=== PATIENT | male | born 1990 | race Hispanic/Latino ===

== ENCOUNTER 2023-08-12 22:22 | Observation (INO) | payer SELFPAY ==
--- OUTSIDE RECORDS SUMMARY | 2023-08-12 22:26 | XMS REPORT | Continuity of Care Document ---
:1990 Author Organization [facility] t Address [address] [place] [address] Care Team Providers Name Role Phone Asuncion Dyson Primary Care Physician VILMA TOBIN M.D. Attending Clinician Unavailable JOLANTA TIERNEY P.A. Attending Clinician Unavailable Problems Condition Condition Condition Status Onset Resolution Last Treating Co mments Source Name Details Category Date Date Treatment Clinician Date Other Other Disease Active [facility] 3- [facility] Beth kes is is [facility] Center History of History of Problem Resolve [facility] pancreatit pancreatit d Ph ysici is is ans Open Open Problem Active [facility] displaced displaced Phys ici comminuted comminuted an s fracture fracture of shaft of shaft of left of left humerus, humerus, initial initial encounter encounter Nerve pain Nerve pain Problem Active [facility]ici ans Allergies, Adverse Reactions, Alerts Allergy Allergy Status Severity Reaction(s) Onset Inactive Treating Comm ents Source Name Type Date Date Clinician Ondanset Drug Active Rash [facility] Iodine Drug Active Hives [facility] 11[facility]06 [facility] Iodide 00:[facility]: Medical Containi 00 Center ng Products Dicyclom Propensi Active 2013-[address] [address] ine ty to 2-05 [facility] adverse 00:00: Medical reaction 00 Center s Prochlor Propensi Active 2013-[address] [address] perazine ty to 2-05 [facility] Edisylat adverse 00:00: Medical e reaction 00 Center s Fentanyl Propensi Active 2013-[address] [facility] [address] ty to 2-05 [facility] adverse 00:00: Medical reaction 00 Center s Morphine Propensi Active 2013-[address] [facility] [address] ty to 2-05 [facility] adverse 00:00: Medical reaction 00 Center s Ketorola Propensi Active 2013-[address] [facility] [address] c ty to 2-05 [facility] adverse 00:00: Medical reaction 00 Center s Tramadol Propensi Active 2013-[address] [facility] [address] ty to 2-05 [facility] adverse 00:00: Medical reaction 00 Center s Compazin drug Active UT e TABS allergy Physici ans Toradol drug Active UT SOLN allergy Physici ans tramadol drug Active [facility] allergy Physici ans Family History Family Member Diagnosis Comments Start Date Stop Date Source Mother Family history of diabetes [facility] mellitus Mother Family history of cardiac [facility] disorder Mother Family history of [facility] hypertension Mother Family history of arthritis [facility] Father Family history of diabetes [facility] mellitus Father Family history of cardiac [facility] disorder Father Family history of [facility] hypertension Father Family history of arthritis [facility] Social History Social Habit Start Date Stop Date Quantity Comments Source Alcohol intake 2016-02-28 2016-02-28 Current [facility] 00:00:00 00:00:00 non-drinker of Medical Ce nter alcohol (finding) Sex Ass[birth year] [facility] 00:00:00 00:00:00 [facility] Smoking Status Start Date Stop Date Source Never smoked tobacco [facility] Medications Ordered Filled Start Stop Current Ordering Indication Dosage Frequency Signature Comments Components Source Medication Medication Date Date Medication? Clinician (SIG) Name Name Tylenol Tylenol Yes [facility] with with 04-25 Physici Codeine #3 Codeine #3 00:00: a ns 300-30 MG 300-30 MG 00 Oral Tablet Oral Tablet Gabapentin Gabapentin Yes VILMA 1 C PO Q UT 300 MG Oral 300 MG Oral 7-02 CRISTA 8HRS Physici Capsule Capsule 00:00: M.D. ans 00 Ergocalcife Ergocalcife Yes VILMA TAKE 1 [place] [id number] rol [id number] - CRISTA CAPSULE Physici UNIT Oral UNIT Oral 00:00: M.D. WEEKLY. ans Capsule Capsule 00 HYDROcodone Yes 1{tbl} Take [address] -acetaminop 4-02 tablet by Dawson es hen (NORCO 00:00: mouth Medica l 10-325) 00 every 6 Center 10-325 mg (six) per tablet hours as needed for Pain. HYDROcodone Yes 1{tbl} Take [address] -acetaminop 4-02 tablet by Dawson es hen ([facility]CO 00:00: mouth Medica l 10-325) 00 every 6 Center 10-325 mg (six) per tablet hours as needed for Pain. HYDROcodone Yes 1{tbl} Take [address] -acetaminop 4-02 tablet by Dawson es hen (NORCO 00:00: mouth Medica l 10-325) 00 every 6 Center 10-325 mg (six) per tablet hours as needed for Pain. Gabapentin Gabapentin Yes UT TABS TABS Physici ans Procedures Procedure Date / Time Performed Performing Clinician Sourc e [U] XRAY HUMERUS MIN 2 [facility] 2019-06-28 00:00:00 [facility] LEFT [id number] [U] XRAY HUMERUS MIN 2 [facility] 2019-06-04 00:00:00 [facility] LEFT [id number] Post Op Promis 29 Survey 2019-05-30 00:00:00 [facility] [U] XRAY HUMERUS MIN 2 [facility] 2019-05-13 00:00:00 [facility] LEFT [id number] [U] XRAY HUMERUS MIN 2 [facility] 2019-04-17 00:00:00 [facility] LEFT [id number] [U] XRAY HUMERUS MIN 2 [facility] 2019-04-16 00:00:00 [facility] LEFT [id number] [U] XRAY HUMERUS MIN 2 [facility] 2019-04-09 00:00:00 [facility] LEFT [id number] History of Cyst excision [facility] History of Pancreatic [facility] ans surgery Encounters Start End Encounter Admission Attending Care Care Encounter Source Date/Time Date/Time Type Type Clinicians Facility Department ID 2021-10-12 2021-10-12 Outpatient [facility]JF[facility] 00:00:00 00:00:00 QNG- 04 2021-10-02 2021-10-02 Outpatient FBCOVID FBCOVID [id number] [id number] [facility]OVID 00:00:00 00:00:00 [id number] 2019-07-01 2019-07-01 [facility] [id number] [place] 08:45:00 08:45:00 t; VILMA TOBIN M.D. - [facility] Stephanie ESPARZA M.D. [facility] 2019-06-05 2019-06-05 Rosita TOBIN [facility] Orthopedics [id number] [place] 11:00:00 11:00:00 t; VILMA TOBIN M.D. - [facility] Stephanie ESPARZA M.D. ans 2019-05-20 2019-05-20 Inpatient E [facility] [id number] [facility] 15:58:00 13:51:00 2019-05-15 2019-05-15 Rosita TOBIN [facility] Orthopedics [id number] [place] 15:30:00 15:30:00 t; VILMA TOBIN M.D. [facility] Stephanie ESPARZA M.D. [facility] 2019-05-06 2019-05-06 Rosita TIERNEY [facility] [id number] [place] 08:00:00 08:00:00 t; JOLANTA TIERNEY P.A. Physici REEJU, ans P.A. 2019-05-02 2019-05-02 Emergency E [facility] [id number] [facility] 19:45:00 19:45:00 2019-04-17 2019-04-17 Rosita TOBIN [facility] Orthopedics [id number] [place] 15:45:00 15:45:00 t; VILMA TOBIN M.D. at [facility] Stephanie ESPARZA M.D. [facility] 2019-04-09 2019-04-09 Rosita TIERNEY [facility] Orthopedics [id number] [place] 10:00:00 10:00:00 t; JOLANTA TIERNEY P.A. - [facility] gordon Weir P.A. 2019-04-09 2019-04-09 Emergency E [facility] [id number] [facility] 07:10:00 07:10:00 2019-03-27 2019-03-27 Rosita TOBIN [facility] Orthopedics [id number] [place] 08:15:00 08:15:00 t; VILMA TOBIN M.D. Elias ESPARZA M.D. [facility] 2019-03-25 2019-03-25 Emergency E [facility] [id number] [facility] 10:16:00 10:16:00 2019-03-19 2019-03-19 Outpatient E [facility] [id number] [facility] 04:36:00 04:36:00 Results Test Description Test Time Test Comments Results Result [facility] e Comments [U] XRAY HUMERUS 2019-06-05 Images [facility] MIN 2 VWS LEFT 11:38:00 acquired, not [id number] reported on this accession number. [U] XRAY HUMERUS 2019-05-15 Images [facility] MIN 2 VWS LEFT 15:59:00 acquired, not [id number] reported on this accession number. [U] XRAY HUMERUS 2019-04-17 Images [facility] MIN 2 VWS LEFT 17:12:00 acquired, not [id number] reported on this accession number. [U] XRAY HUMERUS 2019-04-09 Images [facility] MIN 2 VWS LEFT 08:41:00 acquired, not [id number] reported on this accession number. [U] XRAY HUMERUS 2019-03-27 Images [facility] MIN 2 VWS LEFT 08:29:00 acquired, not [id number] reported on this accession number.
[2023-08-13 01:10] LABS: Absolute Lymphocytes (CBC) 1.1 K/uL (0.7-4.9); Hematocrit 43.2 % (39.6-49.0); Lymphocytes % 9.8 % (15.3-44.8); MCV 85.7 fL (80-100); MPV 6.8 fL (7.6-11.3); Platelets 337 thou/uL (152-406); RBC Red Blood Cell Count 5.04 M/uL (4.33-5.43)
[2023-08-13] MEDS ORDERED: MORPHINE 4 MG/ML SYR ONE ×3 (01:14→01:56)
[2023-08-13] MEDS ORDERED: ONDANSETRON 4 MG/2 ML VIAL ONE (01:14)
[2023-08-13] MEDS ORDERED: NA CHLORIDE 0.9% 2,000 ML ONE (01:15)
[2023-08-13 01:32] LABS: Albumin 3.8 g/dL (3.4-5.0); Bilirubin Total 0.4 mg/dL (0.2-1.0); HDL Cholesterol 49 mg/dL (40-60); Protein, Total 7.9 g/dL (6.4-8.2)
[2023-08-13 01:36] LABS: C-Reactive Protein < 2.90 mg/L (<3.00)
[2023-08-13 01:48] LABS: LDL, Direct 113 mg/dL (100-129)
[2023-08-13] MEDS ORDERED: METOCLOPRAMIDE 10 MG/2mL INJ ONE (01:56)
[2023-08-13] MEDS ORDERED: PROMETHAZINE INJ 25 MG/ML AMP ONE (01:56)
[2023-08-13] MEDS ORDERED: KETOROLAC 30 MG/ML INJ ONE (02:08)
--- NOTE | 2023-08-13 02:33 | ER ---
Nurse's Notes [facility] Name: Luke Chatman Age: 33 yrs Sex: Male : 1990 Arrival Date: 08/12/2023 Time: 22:22 Bed 15 Private MD: Diagnosis: Left sided colitis;Upper abdominal pain, unspecified Presentation: 08/12 23:30 Chief complaint: Spouse and/or significant other states: I think he is having a flare vc1 up of pancreatitis, it has been about 4-5 years since it happened last. Coronavirus screen: Vaccine status: Patient reports being unvaccinated. Client denies travel out of the [place] in the last 14 days. At this time, the client does not indicate any symptoms associated with coronavirus-19. Ebola Screen: Patient negative for fever greater than or equal to 101.5 degrees Fahrenheit, and additional compatible Ebola Virus Disease symptoms Patient denies exposure to infectious person. Patient denies travel to an Ebola-affected area in the 21 days before illness onset. No symptoms or risks identified at this time. Initial Sepsis Screen: Does the patient meet any 2 criteria? No. Patient's initial sepsis screen is negative. Does the patient have a suspected source of infection? No. Patient's initial sepsis screen is negative. Risk Assessment: Do you want to hurt yourself or someone else? Patient reports no desire to harm self or others. Onset of symptoms was August 12, 2023 at 21:30. 23:30 Method Of Arrival: Wheelchair vc1 23:30 Acuity: PAYTON 3 vc1 Triage Assessment: 23:33 General: Appears in no apparent distress. uncomfortable, ill, Behavior is anxious, vc1 crying. Pain: Complains of pain in abdomen Pain radiates to scalp and back Pain currently is 10 out of 10 on a pain scale. Aggravated by laying ion back. EENT: No deficits noted. No signs and/or symptoms were reported regarding the EENT system. Neuro: Level of Consciousness is awake, alert, obeys commands, Oriented to person, place, time, situation, Appropriate for age. GI: Reports lower abdominal pain, upper abdominal pain. Historical: - Allergies: 23:32 No Known Allergies; vc1 - Home Meds: 23:32 None [Active]; vc1 - PMHx: 23:32 Pancreatitis; High Tryglycerides; vc1 - PSHx: 23:32 None; vc1 - Immunization history:: Client reports having NOT received the Covid vaccine. - Social history:: Smoking status: Patient reports the use of cigarette tobacco products, smokes one-half pack cigarettes per day, Reported history of juuling and/or vaping. - Family history:: not pertinent. Screenin/05 01:12 [facility] ED Fall Risk Assessment (Adult) History of falling in the last 3 months, km8 including since admission No falls in past 3 months (0 pts) Confusion or Disorientation No (0 pts) Intoxicated or Sedated No (0 pts) Impaired Gait No (0 pts) Mobility Assist Device Used No (0 pt) Altered Elimination No (0 pt) Score/Fall Risk Level 0 - 2 = Low Risk Oriented to surroundings, Maintained a safe environment, Educated pt \T\ family on fall prevention, incl call for assistance when getting out of bed, Assessed \T\ reinforced patient's understanding of fall precautions. Abuse screen: Denies threats or abuse. Denies injuries from another. Nutritional screening: No deficits noted. Tuberculosis screening: No symptoms or risk factors identified. Assessment: 01:12 General: Appears uncomfortable, Behavior is calm, cooperative, appropriate for age. km8 Pain: Complains of pain in right upper quadrant Pain radiates to back Pain currently is 10 out of 10 on a pain scale. Neuro: Tovar Agitation-Sedation Scale (RASS): 0 - Alert and Calm Level of Consciousness is awake, alert, obeys commands, Oriented to person, place, time, situation. Cardiovascular: Denies chest pain, Capillary refill < 3 seconds Patient's skin is warm and dry. Respiratory: Airway is patent Respiratory effort is even, unlabored, Respiratory pattern is regular, symmetrical. GI: Abdomen is distended, Bowel sounds present X 4 quads. Abdomen is tender to palpation in right upper quadrant Reports upper abdominal pain, nausea. : No signs and/or symptoms were reported regarding the genitourinary system. EENT: No signs and/or symptoms were reported regarding the EENT system. Derm: No signs and/or symptoms reported regarding the dermatologic system. Skin is intact, Skin is dry, Skin is normal, Skin temperature is warm. Musculoskeletal: No signs and/or symptoms reported regarding the musculoskeletal system. Range of motion: intact in all extremities. 02:38 Reassessment: Patient appears in no apparent distress at this time. No changes from km8 previously documented assessment. Patient and/or family updated on plan of care and expected duration. Pain level reassessed. Patient is alert, oriented x 3, equal unlabored respirations, skin warm/dry/pink. 04:17 Reassessment: Patient appears in no apparent distress at this time. No changes from km8 previously documented assessment. Patient and/or family updated on plan of care and expected duration. Pain level reassessed. Patient is alert, oriented x 3, equal unlabored respirations, skin warm/dry/pink. Vital Signs: 08/12 23:30 BP 191 / 101; Pulse 78; Resp 18; Temp 98.4; Pulse Ox 100% ; Weight 77.11 kg; Height 5 vc1 ft. 10 in. ; Pain 07/18; 08/13 01:14 BP 172 / 99; Pulse 55; Resp 18; Pulse Ox 100% on R/A; km8 01:37 BP 156 / 96; Pulse 63; Resp 16 S; Pulse Ox 99% on R/A; km8 02:30 BP 143 / 106; Pulse 101; Resp 18; Pulse Ox 96% on R/A; km8 03:15 BP 145 / 87; Pulse 63; Resp 16; Pulse Ox 98% on R/A; km8 03:21 Pain 8/10; km8 03:30 BP 157 / 89; Pulse 60; Resp 16; Pulse Ox 100% ; km8 04:00 BP 131 / 78; Pulse 60; Resp 16; Pulse Ox 99% on R/A; km8 08/12 23:30 Body Mass Index 24.39 (77.11 kg, 177.8 cm) vc1 08/12 23:30 Pain Scale: Adult vc1 03:21 Pain Scale: Adult km8 [place] Coma Score: 01:12 Eye Response: spontaneous(4). Motor Response: obeys commands(6). Verbal Response: km8 oriented(5). Total: 15. ED Course: 08/12 22:25 Patient arrived in ED. mr 22:39 Jean Marie Fox MD is Attending Physician. sp4 23:15 US Abdomen Limited In Process Unspecified. EDMS 23:32 Triage completed. vc1 23:33 Arm band placed on right wrist. vc1 08/13 00:55 Mirella Montelongo, RN is Primary Nurse. km8 01:12 Patient has correct armband on for positive identification. Placed in gown. Bed in low km8 position. Call light in reach. Side rails up X 1. Client placed on continuous cardiac and pulse oximetry monitoring. NIBP monitoring applied. Door closed. Noise minimized. Lights dimmed. Warm blanket given. 01:12 CBC with Diff Sent. km8 01:12 CMP Sent. km8 01:12 Lipase Sent. km8 01:12 CRP Sent. km8 01:12 Lipid Profile Sent. km8 01:12 Inserted saline lock: 20 gauge in right forearm, using aseptic technique. Blood 8 collected. 01:12 Patient maintains SpO2 saturation greater than 95% on room air. km8 01:30 CT Abd/Pelvis - IV Contrast Only In Process Unspecified. EDMS 02:32 Flynn Spencer MD is Hospitalizing Provider. 4 03:22 Urinalysis w/ reflexes Sent. km8 04:24 Provided Education on: admission process. 8 04:24 No provider procedures requiring assistance completed. Patient admitted, IV remains in km8 place. Administered Medications: 01:11 Drug: morphine IVP or IV 8 mg IVP once over 4 mins Route: IVP; Infused Over: 4 mins; [facility] Site: right forearm; 01:52 Follow up: Response: No adverse reaction; Pain is unchanged, physician notified 01:11 Drug: Ondansetron IVP 4 mg IVP once; over 2 minutes Route: IVP; Site: right forearm; km8 01:51 Follow up: Response: No change in condition; Nausea unchanged 01:11 Drug: NS 0.9% IV 1000 ml IV at 1 bolus Per protocol; 1000 mL bolus Route: IV; Rate: 1 km bolus; Site: right forearm; 03:21 Follow up: IV Status: Completed infusion; IV Intake: 1000ml 01:11 Drug: NS 0.9% IV 1000 ml IV at 125 ml/hr continuous Route: IV; Rate: 125 ml/hr; Site: [facility] right forearm; 04:35 Follow up: IV Status: Completed infusion; IV Intake: 500ml [facility] 01:33 Drug: morphine IVP or IV 4 mg IVP once over 4 mins Route: IVP; Infused Over: 4 mins; km8 Site: right forearm; 01:57 Follow up: Response: No adverse reaction 8 01:51 Drug: Promethazine IM 25 mg IM once Route: IM; Site: right deltoid; km8 01:34 Follow up: Response: No adverse reaction; Nausea is decreased 8 01:51 Drug: metoCLOPramide IVP 10 mg IVP once; over 1 to 2 minutes Route: IVP; Site: right km8 forearm; 01:34 Follow up: Response: No adverse reaction; Nausea is decreased 8 01:51 Drug: morphine IVP or IV 4 mg IVP once over 4 mins Route: IVP; Infused Over: 4 mins; km8 Site: right forearm; 01:34 Follow up: Response: No adverse reaction; Pain is unchanged, physician notified km8 01:56 Drug: Ketorolac IVP 30 mg IVP once Route: IVP; Site: right forearm; km8 02:36 Follow up: Response: No adverse reaction; Pain is unchanged, physician notified 8 02:35 Drug: fentaNYL (PF) IVP 100 mcg IVP once Route: IVP; Site: right forearm; km8 03:21 Follow up: Pain 8/10 Adult; Response: No adverse reaction; Pain is decreased 8 03:21 Drug: Dicyclomine IM 20 mg IM once Route: IM; Site: left deltoid; km8 04:06 Follow up: Response: No adverse reaction 8 03:21 Drug: metroNIDAZOLE IVPB 500 mg 100 ml IVPB at 200 ml/hr once over 30 mins Volume: 100 km8 ml; Route: IVPB; Rate: 200 ml/hr; Infused Over: 30 mins; Site: right forearm; 03:59 Follow up: Response: No adverse reaction; IV Status: Completed infusion; IV Intake: km8 100ml 03:59 Drug: Rocephin - Rocephin (cefTRIAXone) IVPB 1 grams IVPB once over 30 mins; (mix in 50 km8 mL NS) Route: IVPB; Infused Over: 30 mins; Site: right forearm; 04:24 Follow up: Response: No adverse reaction; IV Status: Completed infusion; IV Intake: [id number] 04:09 Drug: Haloperidol IVP 5 mg IVP once Route: IVP; Site: right forearm; km8 04:35 Follow up: Response: No adverse reaction km8 04:10 Drug: diphenhydrAMINE IVP 25 mg IVP once Route: IVP; Site: right forearm; km8 04:35 Follow up: Response: No adverse reaction km8 Medication: 04:24 VIS not applicable for this client. km8 Intake: 03:21 IV: 1000ml; Total: 1000ml. km8 03:59 IV: 100ml; Total: 1100ml. km8 04:24 IV: 50ml; Total: 1150ml. km8 04:35 IV: 500ml; Total: 1650ml. km8 Outcome: 02:33 Decision to Hospitalize by Provider. sp4 04:34 Admitted to Med/surg accompanied by nurse, via wheelchair, room 213, Report called to marii Dumont RN 04:34 Condition: stable 04:34 Discharge instructions given to patient, Instructed on the need for admit, Demonstrated understanding of instructions, 04:49 Patient left the ED. km8 Signatures: Dispatcher [employer] EDMS Donna Pittman, Reg Reg mr Brenda Sanchez RN RN 1 Jean Marie Fox MD MD sp4 Mirella Montelongo RN RN km8
--- NOTE | 2023-08-13 02:33 | EDPHYS ---
Physician Documentation [facility] Name: Luke Chatman Age: 33 yrs Sex: Male : 1990 Arrival Date: 08/12/2023 Time: 22:22 Bed 15 Private MD: ED Physician Jean Marie Fox HPI: 08/13 01:31 This 33 yrs old Male presents to ER via Wheelchair with complaints of sp4 Abdominal Pain. 02:27 33-year-old male presents with moderate to severe upper abdominal pain associated with sp4 radiation into the back. Patient reported nausea and pain typical for his pancreatitis. Patient states he had pancreatitis approximately 4 years ago which was presenting with similar pain. Patient denied vomiting denied bloody stools denied diarrhea.. Historical: - Allergies: 08/12 23:32 No Known Allergies; vc1 - Home Meds: 23:32 None [Active]; vc1 - PMHx: 23:32 Pancreatitis; High Tryglycerides; vc1 - PSHx: 23:32 None; vc1 - Immunization history:: Client reports having NOT received the Covid vaccine. - Social history:: Smoking status: Patient reports the use of cigarette tobacco products, smokes one-half pack cigarettes per day, Reported history of juuling and/or vaping. - Family history:: not pertinent. ROS: 08/13 02:27 Constitutional: Negative for fever, chills, and weight loss, Abdomen/GI: Positive sp4 abdominal pain and nausea negative vomiting All other systems are negative, Exam: 02:27 Constitutional: This is a well developed, well nourished patient who is awake, alert, sp4 moderate distress secondary to pain Head/Face: Normocephalic, atraumatic. Eyes: Pupils equal round and reactive to light, extra-ocular motions intact. Lids and lashes normal. Conjunctiva and sclera are not injected. Cornea within normal limits. Periorbital areas with no swelling, redness, or edema. ENT: Nares patent. No nasal discharge, no septal abnormalities noted. Tympanic membranes are normal and external auditory canals are clear. Oropharynx with no redness, swelling, or masses, exudates, or evidence of obstruction, uvula midline. Mucous membranes moist. Neck: Trachea midline, no thyromegaly or masses palpated, and no cervical lymphadenopathy. Supple, full range of motion without nuchal rigidity, or vertebral point tenderness. Chest/axilla: Normal chest wall appearance and motion. Nontender with no deformity. No lesions are appreciated. Cardiovascular: Regular rate and rhythm with a normal S1 and S2. No gallops, murmurs, or rubs. Normal PMI, no JVD. No pulse deficits. Respiratory: Lungs have equal breath sounds bilaterally, clear to auscultation and percussion. No rales, rhonchi or wheezes noted. No increased work of breathing, no retractions or nasal flaring. Abdomen/GI: Soft positive upper abdominal tenderness positive right upper left upper abdominal tenderness. Negative rebound Back: No spinal tenderness. No costovertebral tenderness. Skin: Warm, dry with normal turgor. Normal color with no rashes, no lesions, and no evidence of cellulitis. Vital Signs: 08/12 23:30 BP 191 / 101; Pulse 78; Resp 18; Temp 98.4; Pulse Ox 100% ; Weight 77.11 kg; Height 5 vc1 ft. 10 in. ; Pain 07/18; 08/13 01:14 BP 172 / 99; Pulse 55; Resp 18; Pulse Ox 100% on R/A; km8 01:37 BP 156 / 96; Pulse 63; Resp 16 S; Pulse Ox 99% on R/A; km8 02:30 BP 143 / 106; Pulse 101; Resp 18; Pulse Ox 96% on R/A; km8 03:15 BP 145 / 87; Pulse 63; Resp 16; Pulse Ox 98% on R/A; km8 03:21 Pain 8/10; km8 03:30 BP 157 / 89; Pulse 60; Resp 16; Pulse Ox 100% ; km8 04:00 BP 131 / 78; Pulse 60; Resp 16; Pulse Ox 99% on R/A; km8 08/12 23:30 Body Mass Index 24.39 (77.11 kg, 177.8 cm) vc1 08/12 23:30 Pain Scale: Adult vc1 03:21 Pain Scale: Adult km8 Berto Coma Score: 01:12 Eye Response: spontaneous(4). Motor Response: obeys commands(6). Verbal Response: km8 oriented(5). Total: 15. MDM: 08/12 22:41 Patient medically screened. sp4 08/13 01:50 ED course: EXAM: US Abdomen Limited, Gallbladder CLINICAL HISTORY: pancreatitis sp4 TECHNIQUE: Real-time ultrasound of the right upper quadrant with image documentation. COMPARISON: No relevant prior studies available. FINDINGS: Gallbladder: Unremarkable. No gallstones. Common bile duct: Unremarkable as visualized. No stones. No dilation. IMPRESSION: No sonographic evidence of cholelithiasis or acute cholecystitis. . 02:22 ED course: CT - FINDINGS: Lung bases: The lung bases are clear. The heart is normal in sp4 size. Liver: The liver is top normal in size and measures approximately 17.9 cm in craniocaudal dimension. No focal hepatic abnormalities are identified. Liver attenuation is within normal limits. The portal veins are patent. Spleen:The spleen is normal in size, configuration and attenuation. Gallbladder and bile duct: The gallbladder is well distended and unremarkable. There is no biliary ductal dilatation. Pancreas: The pancreas is grossly normal in size and configuration. Adrenal Glands:The adrenal glands are normal in size and configuration. Kidneys:The kidneys are normal in size and configuration. There is no evidence of hydronephrosis. There is no evidence of nephrolithiasis. There is an approximately 2.8 cm cyst arising from the mid to lower pole of the left kidney and a 1.5 cm cyst along the upper pole of the left kidney. No routine follow-up imaging is recommended. Stomach:The stomach is grossly normal. There is no definite hiatal hernia. Bowel:The bowel gas pattern is non specific and non obstructive. There is questionable minimal colonic wall thickening along the sigmoid portion of the colon. Appendix: The appendix is normal. Free air:There is no evidence of free air. Free fluid: There is no evidence of free fluid. Vasculature: The aorta is normal in caliber and contour. The inferior vena cava is grossly unremarkable. Lymphadenopathy: No pathologic lymphadenopathy is identified. Bladder: The bladder is well distended and smooth in contour. Reproductive: The prostate gland is grossly within normal limits. Bones: No acute osseous abnormalities are identified. Soft tissues: No acute soft tissue abnormalities are identified. There is a tiny fat-containing ventral umbilical hernia. IMPRESSION: There is questionable minimal colonic wall thickening along the sigmoid portion of the colon. Otherwise, there is no evidence of acute intra-abdominal or intrapelvic pathology. Electronically signed by: Vickie Tong DO 08/13/2023 1:48 AM. 02:27 Differential Diagnosis altered mental status, sepsis, flu. Data reviewed: vital signs, sp4 nurses notes, old medical records, lab test result(s), radiologic studies, CT scan, ultrasound. Consideration of Admission/Observation Patient was admitted/placed on observation. Escalation of care including admission/observation considered. ED course: Patient will be admitted for management of colitis and pain control. . 08/12 22:41 Order name: CBC with Diff; Complete Time: 01:40 sp4 08/12 22:41 Order name: CMP; Complete Time: 01:40 sp4 08/12 22:41 Order name: Lipase; Complete Time: 01:40 sp4 08/12 22:41 Order name: Urinalysis w/ reflexes; Complete Time: 04:01 sp4 08/12 22:52 Order name: CRP; Complete Time: 02:22 sp4 08/12 22:52 Order name: Lipid Profile; Complete Time: 02:22 sp4 08/13 01:48 Order name: LDL, Direct; Complete Time: 02:22 EDMS 08/13 02:46 Order name: CBC with Automated Diff EDMS 08/13 02:46 Order name: CBC with Automated Diff EDMS 08/13 02:46 Order name: Comprehensive Metabolic Panel EDMS 08/13 02:46 Order name: Comprehensive Metabolic Panel EDMS 08/12 22:51 Order name: CT Abd/Pelvis - IV Contrast Only 4 08/12 22:52 Order name: US Abdomen Limited 4 08/12 22:41 Order name: IV Saline Lock; Complete Time: 01:11 sp4 08/12 22:41 Order name: Labs collected and sent; Complete Time: 01:12 4 Administered Medications: 01:11 Drug: morphine IVP or IV 8 mg IVP once over 4 mins Route: IVP; Infused Over: 4 mins; km8 Site: right forearm; 01:52 Follow up: Response: No adverse reaction; Pain is unchanged, physician notified 01:11 Drug: Ondansetron IVP 4 mg IVP once; over 2 minutes Route: IVP; Site: right forearm; km8 01:51 Follow up: Response: No change in condition; Nausea unchanged 01:11 Drug: NS 0.9% IV 1000 ml IV at 1 bolus Per protocol; 1000 mL bolus Route: IV; Rate: 1 km8 bolus; Site: right forearm; 03:21 Follow up: IV Status: Completed infusion; IV Intake: 1000ml 8 01:11 Drug: NS 0.9% IV 1000 ml IV at 125 ml/hr continuous Route: IV; Rate: 125 ml/hr; Site: 8 right forearm; 04:35 Follow up: IV Status: Completed infusion; IV Intake: 500ml 01:33 Drug: morphine IVP or IV 4 mg IVP once over 4 mins Route: IVP; Infused Over: 4 mins; [facility] Site: right forearm; 01:57 Follow up: Response: No adverse reaction 01:51 Drug: Promethazine IM 25 mg IM once Route: IM; Site: right deltoid; 8 01:34 Follow up: Response: No adverse reaction; Nausea is decreased 01:51 Drug: metoCLOPramide IVP 10 mg IVP once; over 1 to 2 minutes Route: IVP; Site: right 8 forearm; 01:34 Follow up: Response: No adverse reaction; Nausea is decreased 01:51 Drug: morphine IVP or IV 4 mg IVP once over 4 mins Route: IVP; Infused Over: 4 mins; [facility] Site: right forearm; 01:34 Follow up: Response: No adverse reaction; Pain is unchanged, physician notified 8 01:56 Drug: Ketorolac IVP 30 mg IVP once Route: IVP; Site: right forearm; km8 02:36 Follow up: Response: No adverse reaction; Pain is unchanged, physician notified 8 02:35 Drug: fentaNYL (PF) IVP 100 mcg IVP once Route: IVP; Site: right forearm; 8 03:21 Follow up: Pain 8/10 Adult; Response: No adverse reaction; Pain is decreased 03:21 Drug: Dicyclomine IM 20 mg IM once Route: IM; Site: left deltoid; 8 04:06 Follow up: Response: No adverse reaction 03:21 Drug: metroNIDAZOLE IVPB 500 mg 100 ml IVPB at 200 ml/hr once over 30 mins Volume: 100 km8 ml; Route: IVPB; Rate: 200 ml/hr; Infused Over: 30 mins; Site: right forearm; 03:59 Follow up: Response: No adverse reaction; IV Status: Completed infusion; IV Intake: km8 100ml 03:59 Drug: Rocephin - Rocephin (cefTRIAXone) IVPB 1 grams IVPB once over 30 mins; (mix in 50 km8 mL NS) Route: IVPB; Infused Over: 30 mins; Site: right forearm; 04:24 Follow up: Response: No adverse reaction; IV Status: Completed infusion; IV Intake: [id number] 04:09 Drug: Haloperidol IVP 5 mg IVP once Route: IVP; Site: right forearm; km8 04:35 Follow up: Response: No adverse reaction km8 04:10 Drug: diphenhydrAMINE IVP 25 mg IVP once Route: IVP; Site: right forearm; km8 04:35 Follow up: Response: No adverse reaction km8 Disposition Summary: 08/13/23 02:33 Hospitalization Ordered Notes: Hospitalization Status: Inpatient Admission sp4 Provider: Flynn Spencer4 Location: Telemetry/MedSurg (Inpatient) sp4 Condition: Stable sp4 Problem: new sp4 Symptoms: have improved sp4 Bed/Room Type: Standard sp4 Room Assignment: 213(08/13/23 04:19) mw Diagnosis - Left sided colitis sp4 - Upper abdominal pain, unspecified sp4 Forms: - Medication Reconciliation Form sp4 - SBAR form sp4 - Leadership Thank You Letter sp4 Signatures: Dispatcher [employer] EDKandi Perez RN RN mw Brenda Sanchez RN RN vc1 Jean Marie Fox MD MD sp4 Mirella Montelongo RN RN km8 Corrections: (The following items were deleted from the chart) 04:19 02:33 sp4 mw
[2023-08-13] MEDS ORDERED: ONDANSETRON 4 MG/2 ML VIAL IV PRN (02:41)
[2023-08-13] MEDS ORDERED: ACETAMINOPHEN 500 MG TAB PO PRN (02:41)
--- NOTE | 2023-08-13 02:41 | P.HP ---
Certification for Inpatient Patient admitted to: Observation With expected LOS: <2 Midnights Patient will require the following post-hospital care: None Practitioner: I am a practitioner with admitting privileges, knowledge of patient current condition, hospital course, and medical plan of care. Services: Services provided to patient in accordance with Admission requirements found in Title 42 Section 412.3 of the Code of Federal Regulations Patient History Date of Service: 08/13/23 Reason for admission: Abdominal Pain History of Present Illness: 33 yrs old Male with past medical history of Pancreatitis, hypertriglyceridemia presents to ER with complaints of Abdominal Pain. The pain started 2 days ago and has been progressively worsening with severe upper abdominal pain associated with radiation into the back. Patient reported nausea and pain typical for his pancreatitis. Patient states he had pancreatitis approximately 4 years ago which was presenting with similar pain. No fever or chills No nausea vomiting or diarrhea Patient was examined and assessed in the ER and had a CT scan which was consistent with colitis. Patient is being admitted for further management of acute abdominal pain and colitis/pancreatitis Allergies No Known Allergies Allergy (Unverified 08/13/23 02:52) Home medications list reviewed: Yes - Past Medical/Surgical History Past Medical History: Reviewed- Non-Contributory -: Pancreatitis -: Hypertriglyceredemia Past Surgical History: Reviewed- Non-Contributory - Family History Family History: Reviewed- Non-Contributory - Social History Smoking Status: Never smoker Review of Systems 10-point ROS is otherwise unremarkable General: Weakness, Unremarkable Eyes: Unremarkable ENT: Unremarkable Respiratory: Unremarkable Cardiovascular: Unremarkable Gastrointestinal: Abdominal Pain Genitourinary: Unremarkable Musculoskeletal: Unremarkable Neurological: Unremarkable Physical Examination - Vital Signs Temperature: 97.3 F Blood Pressure: 126/70 Pulse: 62 Respirations: 18 Pulse Ox (%): 98 - Physical Exam General: Alert, In no apparent distress, Oriented x3 HEENT: Atraumatic, Normocephalic Neck: Supple Respiratory: Clear to auscultation bilaterally, Normal air movement Cardiovascular: No edema, Regular rate/rhythm, Normal S1 S2 Capillary refill: <2 Seconds Gastrointestinal: W/out hepatosplenomegaly, Tenderness Musculoskeletal: No clubbing, No swelling Integumentary: No rashes Neurological: Normal strength at 5/5 x4 extr, Normal tone, Cranial nerves 3-12 intact, Normal reflexes 2+, Normal affect Lymphatics: No axilla or inguinal lymphadenopathy - Studies Laboratory Data (last 24 hrs) 11/05/23 11/05/23 11/05/23 01:04 COLLECTION TELLER 01:04 COLLECTION TELLER 01:04 COLLECTION TELLER WBC 11.50 H Hgb 15.2 Hct 43.2 Plt Count 337 Sodium 139 Potassium 3.0 L BUN 14 Creatinine 1.04 Glucose 149 H Total Bilirubin 0.4 AST 14 L ALT 21 Alkaline Phosphatase 98 Triglycerides 420 H Cholesterol 231 H LDL Cholesterol Direct 113 HDL Cholesterol 49 Cholesterol/HDL Ratio 4.71 Lipase 25 Assessment and Plan - Problems (Diagnosis) (1) Acute abdominal pain Current Visit: Yes Status: Acute Plan: Pain control IV hydration Monitor closely CT findings noted consistent with colitis (2) Colitis Current Visit: Yes Status: Acute Plan: Pain control Started on IV hydration Started on Rocephin and Flagyl CT findings started Patient denies any melena (3) H/O acute pancreatitis Current Visit: Yes Status: Chronic Plan: Lipase is negative Patient still has abdominal pain with radiation to back similar to the pancreatitis he had 4 years ago IV hydration Monitor closely (4) Hypertriglyceridemia Current Visit: Yes Status: Chronic Plan: N.p.o. for now We will start on o gemfibrozil once pain is slightly better and can tolerate p.o. Monitor lipid panel Discharge Plan: Home Plan to discharge in: 24 Hours - Advance Directives Does patient have a Living Will: No Does patient have a Durable POA for Healthcare: No - Code Status/Comfort Care Code Status: Full Code Physician Review: Patient Assessed, Agree with Above Assessment and Plan Time Spent Managing Pts Care (In Minutes): 48
[2023-08-13] MEDS ORDERED: FENTANYL CITR 100 MCG/2 ML ONE (02:46)
[2023-08-13] MEDS ORDERED: METRONIDAZOLE 500mg IVPB 500 MG/100 ML BAG IV ONE (03:19)
[2023-08-13] MEDS ORDERED: NA CHLORIDE 0.9% 50 ML ONE (03:19)
[2023-08-13] MEDS ORDERED: DICYCLOMINE HCL 20 MG/2 ML AMP IM ONE (03:19)
[2023-08-13] MEDS ORDERED: CEFTRIAXONE 1000 MG/VIAL ONE (03:19)
[2023-08-13] MEDS ORDERED: NA CHLORIDE 0.9% 0 ML ONE (03:19)
[2023-08-13 03:33] LABS: Specific Gravity > 1.030 (1.005-1.030); Urine Bacteria None Seen /HPF (<20); Urine Bilirubin NEGATIVE (Negative); Urine Blood Negative (Negative); Urine Clarity Clear (Clear); Urine Color Colorless (Yellow); Urine Glucose NEGATIVE (Negative); Urine Protein NEGATIVE (Negative); Urine RBC <5 /HPF (None Seen); Urine Urobilinogen Normal (Normal)
[2023-08-13] MEDS ORDERED: HALOPERIDOL LACT 5 MG/ML INJ ONE (04:19)
[2023-08-13] MEDS ORDERED: DIPHENHYDRAMINE 50 MG/ML VIAL ONE (04:19)
[2023-08-13 04:50] VITALS: BMI 25.0
[2023-08-13] MEDS: NA CHLORIDE 0.9% 1,000 ML IV SCH ×3 (05:27→16:10)
[2023-08-13] MEDS: MORPHINE 2 MG/ML SYR IV PRN ×5 (05:28→22:02)
[2023-08-13] MEDS ORDERED: KCL 20 MEQ/100 mL IVPB 20 MEQ/100 ML BAG IV ONE (06:00)
[2023-08-13] MEDS: CEFTRIAXONE 1,000 MG in NA CHLORIDE 0.9% 50 ML IVPB SCH (07:41)
[2023-08-13] MEDS: METRONIDAZOLE 500mg IVPB 500 MG/100 ML BAG IV SCH ×2 (07:42→16:10)
[2023-08-13] MEDS ORDERED: KCL 20 MEQ/100 mL IVPB 20 MEQ/100 ML BAG IV SCH (12:00)
--- NOTE | 2023-08-13 12:01 | P.PN ---
Date of Service: 08/13/23 Since seen and examined. He is complaining of epigastric pain. Currently denies any nausea. He had a bowel movement this morning. CT abdomen pelvis-no evidence of acute pancreatitis. Lipase is normal. Etiology of abdominal pain is unclear. Mild colitis as reported on the CT. Plan: Continue supportive measures Empiric antibiotic Start full liquid diet and assess.
[2023-08-13] MEDS ORDERED: POTASSIUM 25 MEQ EFFERV TAB PO ONE (12:28)
--- NOTE | 2023-08-13 12:30 | RAD REPORT ---
EXAM DESCRIPTION: CT - Abdomen Pelvis W Contrast - 08/13/2023 1:28 am CLINICAL HISTORY: 33 years Male ABD PAIN TECHNIQUE: Axial CT imaging of the abdomen and pelvis was performed following the administration of intravenous contrast.. Oral contrast was not administered. Sagittal and coronal reconstructed image s were then performed. The CT study is performed according to ALARA (as low as reasonably achievabl e) or ALARA/IMAGE GENTLY, with automatic adjustment of mA and/or kV according to patient size. Performed on: 08/13/2023 at 1:12 AM. COMPARISON: Abdominal ultrasound performed on 08/12/2023 at 11:06 PM FINDINGS: Lung bases: The lung bases are clear. The heart is normal in size. Liver: The liver is top normal in size and measures approximately 17.9 cm in craniocaudal dimension. No focal hepatic abnormalities are identified. Liver attenuation is within normal limits. The portal veins are patent. Spleen: The spleen is normal in size, configuration and attenuation. Gallbladder and bile duct: The gallbladder is well distended and unremarkable. There is no biliary ductal dilatation. Pancreas: The pancreas is grossly normal in size and configuration. Adrenal Glands: The adrenal glands are normal in size and configuration. Kidneys: The kidneys are normal in size and configuration. There is no evidence of hydronephrosis. Th ere is no evidence of nephrolithiasis. There is an approximately 2.8 cm cyst arising from the mid to lower pole of the left kidney and a 1.5 cm cyst along the upper pole of the left kidney. No routine f ollow-up imaging is recommended. Stomach: The stomach is grossly normal. There is no definite hiatal hernia. Bowel: The bowel gas pattern is non specific and non obstructive. There is questionable minimal colon ic wall thickening along the sigmoid portion of the colon. Appendix: The appendix is normal. Free air: There is no evidence of free air. Free fluid: There is no evidence of free fluid. Vasculature: The aorta is normal in caliber and contour. The inferior vena cava is grossly unremarkab le. Lymphadenopathy: No pathologic lymphadenopathy is identified. Bladder: The bladder is well distended and smooth in contour. Reproductive: The prostate gland is grossly within normal limits. Bones: No acute osseous abnormalities are identified. Soft tissues: No acute soft tissue abnormalities are identified. There is a tiny fat-containing ventr al umbilical hernia. IMPRESSION: There is questionable minimal colonic wall thickening along the sigmoid portion of the c olon. Otherwise, there is no evidence of acute intra-abdominal or intrapelvic pathology. Electronically signed by: Vickie Tong DO 08/13/2023 1:48 AM JAIL KEEPER Due to temporary technical issues with the PACS/Fluency reporting system, reports are being signed by the in house radiologists without review as a courtesy to insure prompt reporting. The interpreting radiologist is fully responsible for the content of the report.
--- NOTE | 2023-08-13 12:31 | RAD REPORT ---
EXAM DESCRIPTION: US - Abdomen Exam Limited - 08/12/2023 11:14 pm CLINICAL HISTORY: Pancreatitis TECHNIQUE: Real-time ultrasound of the right upper quadrant with image documentation. COMPARISON: No relevant prior studies available. FINDINGS: Gallbladder: Unremarkable. No gallstones. Common bile duct: Unremarkable as visualized. No stones. No dilation. IMPRESSION: No sonographic evidence of cholelithiasis or acute cholecystitis. Electronically signed by: Harshad Adame MD 08/13/2023 12:02 AM CDT Due to temporary technical issues with the PACS/Fluency reporting system, reports are being signed by the in house radiologists without review as a courtesy to insure prompt reporting. The interpreting radiologist is fully responsible for the content of the report.
[2023-08-14] MEDS: METRONIDAZOLE 500mg IVPB 500 MG/100 ML BAG IV SCH ×2 (01:43→07:51)
[2023-08-14] MEDS: NA CHLORIDE 0.9% 1,000 ML IV SCH ×2 (01:43→09:00)
[2023-08-14] MEDS: MORPHINE 2 MG/ML SYR IV PRN ×3 (01:45→10:26)
[2023-08-14 02:56] LABS: Absolute Lymphocytes (CBC) 2.2 K/uL (0.7-4.9); Hematocrit 39.7 % (39.6-49.0); MPV 7.1 fL (7.6-11.3); Platelets 295 thou/uL (152-406); RBC Red Blood Cell Count 4.56 M/uL (4.33-5.43)
[2023-08-14 03:20] LABS: Albumin 3.3 g/dL (3.4-5.0); Bilirubin Total 0.7 mg/dL (0.2-1.0); Potassium 3.8 mEq/L (3.5-5.1); Protein, Total 6.8 g/dL (6.4-8.2)
[2023-08-14] MEDS: CEFTRIAXONE 1,000 MG in NA CHLORIDE 0.9% 50 ML IVPB SCH (07:51)
[2023-08-14 10:10] VITALS: O2SAT 97
[2023-08-14 10:42] VITALS: BP 115/66; TEMP 98.7
--- NOTE | 2023-08-14 13:12 | P.DS ---
Admission Date: 08/13/23 Discharge Date: 08/14/23 Disposition: ROUTINE DISCHARGE Reason for Admission: Abdominal Pain - Problems (1) Abdominal pain Current Visit: Yes Status: Acute (2) Colitis Current Visit: Yes Status: Acute (3) H/O acute pancreatitis Current Visit: Yes Status: Chronic (4) Hypertriglyceridemia Current Visit: Yes Status: Chronic Brief History of Present Illness: 33 yrs old Male with past medical history of Pancreatitis, hypertriglyceridemia presents to ER with complaints of Abdominal Pain. The pain started 2 days prior and" progressively worse with severe upper abdominal pain associated with radiation into the back. Patient reported nausea and pain typical for his pancreatitis. Patient states he had pancreatitis approximately 4 years ago which was presented with similar pain. No nausea vomiting or diarrhea but patient was not tolerating oral intake Patient was examined and assessed in the ER and had a CT scan which was consi stent with colitis. Patient was hospitalized for further management. . Hospital Course: Patient placed under observation on the medical floor and treated with supportive measures including IV hydration, IV opioid for pain management. He was also treated with IV antibiotics for colitis. Patient lipase level was normal. No evidence of acute pancreatitis on imaging. He tolerated full liquid diet without vomiting. Patient requested for discharge. Vitals are stable. Patient is discharged per his request and prescribed oral antibiotics to continue treatment for the colitis. Vital Signs/Physical Exam: Temp Pulse Resp BP Pulse Ox 98.7 F 76 17 115/66 90 L 08/14/23 08:00 08/14/23 08:00 08/14/23 10:26 08/14/23 08:00 08/14/23 10:26 General: Alert, In no apparent distress, Oriented x3 HEENT: Mucous membr. moist/pink Neck: Supple, JVD not distended Respiratory: Clear to auscultation bilaterally, Normal air movement Cardiovascular: No edema, Regular rate/rhythm, Normal S1 S2 Gastrointestinal: Soft and benign, Non-distended, Tenderness (Mild diffuse abdominal tenderness) Musculoskeletal: No swelling Integumentary: No rashes, No cyanosis Neurological: Normal strength at 5/5 x4 extr Laboratory Data at Discharge: WBC 8.80 thou/uL (4.3-10.9) 08/14/23 01:52 Hgb 13.5 g/dL (13.6-17.9) L D 08/14/23 01:52 Hct 39.7 % (39.6-49.0) 08/14/23 01:52 Plt Count 295 thou/uL (152-406) 08/14/23 01:52 Sodium 140 mEq/L (136-145) 08/14/23 01:52 Potassium 3.8 mEq/L (3.5-5.1) 08/14/23 01:52 BUN 8 mg/dL (7-18) 08/14/23 01:52 Creatinine 0.85 mg/dL (0.70-1.30) 08/14/23 01:52 Glucose 101 mg/dL (74-106) 08/14/23 01:52 Total Bilirubin 0.7 mg/dL (0.2-1.0) 08/14/23 01:52 AST 25 U/L (15-37) 08/14/23 01:52 ALT 22 U/L (16-61) 08/14/23 01:52 Alkaline Phosphatase 87 U/L (45-117) 08/14/23 01:52 Triglycerides 420 mg/dL (<150) H 08/13/23 01:04 CLAMP REMOVER Cholesterol 231 mg/dL (<200) H 08/13/23 01:04 CLAMP REMOVER LDL Cholesterol Direct 113 mg/dL (100-129) 08/13/23 01:04 CLAMP REMOVER HDL Cholesterol 49 mg/dL (40-60) 08/13/23 01:04 CLAMP REMOVER Cholesterol/HDL Ratio 4.71 08/13/23 01:04 CLAMP REMOVER Lipase 25 U/L (13-75) 08/13/23 01:04 CLAMP REMOVER Home Medications: Ciprofloxacin HCl [Cipro] 500 mg PO BID #10 tab 08/14/23 metroNIDAZOLE [Metronidazole] 500 mg PO TID #15 tab 08/14/23 New Medications: Ciprofloxacin HCl [Cipro] 500 mg PO BID #10 tab metroNIDAZOLE [Metronidazole] 500 mg PO TID #15 tab Physician Discharge Instructions: Soft diet and progress as tolerated. Time spent managing pt's care (in minutes): 28
== END 2023-08-14 14:09 | disposition home or self-care (01) ==
LOC: ER 22:22 → ERHOLD 08-13 02:42 → 2ND 08-13 04:35
PROVIDERS: ADMIT Family Medicine; ATTEND Internal Medicine
DX: K52.9 Noninfective gastroenteritis and colitis, unspecified (principal); E78.1 Pure hyperglyceridemia; Z87.19 Personal history of other diseases of the digestive system
CPT/HCPCS: 36415; 74177; 76705; 80053; 80061; 81001; 83690; 84132; 85025; 86140; 96361; 96365; 96367; 96372; 96375; 99285; G0378; J0500; J0696; J1200; J1630; J2270; J2405; J2550; J2765; J3010; J3480; J7030; Q9967